=== PATIENT | female | born 1995 | race Two or more races ===

== ENCOUNTER 2022-11-06 16:24 | Emergency (ER) | payer OTHER ==
[~2022-11-06] VITALS: Ht 157.5 cm; Wt 68.0 kg
== END 2022-11-06 20:38 | disposition home or self-care (01) ==
LOC: ER 16:24
DX: S82.61XA Displaced fracture of lateral malleolus of right fibula, initial encounter for closed fracture (principal); S51.812A Laceration without foreign body of left forearm, initial encounter; M25.532 Pain in left wrist; M25.571 Pain in right ankle and joints of right foot; W18.39XA Other fall on same level, initial encounter; Y93.89 Activity, other specified; Y92.480 Sidewalk as the place of occurrence of the external cause; Y99.0 Civilian activity done for income or pay